=== PATIENT | male | born 1935 | race Caucasian/White ===

== ENCOUNTER → 2017-04-10 | Outpatient (CLI) | payer MEDICARE, OTHER ==
--- NOTE | 2017-04-10 13:00 | WOMENS IMAGING REPORT ---
EXAM DESCRIPTION: BONE DENSITY HIP/SPINE COMPLETED DATE/TIME: 04/10/2017 12:52 pm REASON FOR STUDY: OSTEOPENIA M81.0 AGE-RELATED OSTEOPOROSIS W/O CURRENT PATHOLOGICAL FRAC COMPARISON: None. TECHNIQUE: Dual-Energy X-ray Absorptiometry (DEXA) of the AP Spine and Hip. LIMITATIONS: None. FINDINGS: LUMBAR SPINE: The bone mineral density (BMD) measured from L1-L4 in the AP projection correlates with a T-score of -1.4, which is osteopenia as defined by the World Health Organization. HIP: The bone mineral density (BMD) measured in the left hip correlates with a T-score of -1.8, which is o steopenia as defined by the World Health Organization. IMPRESSION: 1. LUMBAR SPINE: OSTEOPENIA. 2. HIP: OSTEOPENIA. COMMENT: The World Health Organization defines low BMD as follows: T-score: Normal: Greater than -1.0 Osteopenia: Between -1.0 and -2.5 Osteoporosis: Less than -2.5 without fractures Established osteoporosis: Less than -2.5 with fractures In general, you may wish to consider: Diagnosis Treatment Follow-up DEXA Normal BMD Prevention 2-3 years Osteopenia Prevention/Therapy 1-2 years Osteoporosis Therapy Yearly TECHNICAL DOCUMENTATION: JOB ID: [id number] [employer]- All Rights Reserved
== END ==
LOC: WI 12:29
PROVIDERS: ATTEND Physician Assistant
DX: M81.0 Age-related osteoporosis without current pathological fracture (principal)
CPT/HCPCS: 77080

== ENCOUNTER 2019-08-07 10:06 | Emergency (ER) | payer MEDICARE, OTHER ==
--- NOTE | 2019-08-07 10:23 | ER Document Report ---
ED Medical Screen (RME) - General Chief Complaint: Dizziness Stated Complaint: DIZZINESS Time Seen by Provider: 08/07/19 10:17 Primary Care Provider: MARIAM LOZA PA [Primary Care Provider] - Follow up as needed Mode of Arrival: Wheelchair Information source: Patient Notes: 84-year-old male presented to ED for complaint of dizziness starting on Sunday. He states he forgot his meds this morning but dizziness started on Sunday. He states his eye doctor also told him that his glaucoma was narrowing and that he really needed to get that checked out. He states his primary care doctor told him please to have that checked out also while he was in the ER. Patient is alert and oriented respirations regular nonlabored speaking in full sentences. I have greeted and performed a rapid initial assessment of this patient. A comprehensive ED assessment and evaluation of the patient, analysis of test results and completion of medical decision making process will be conducted by an additional ED providers. TRAVEL OUTSIDE OF THE [place] 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 Neurological Medical History: Reports: Hx Cerebrovascular Accident - 2017 Endocrine Medical History: Reports: None Renal/ Medical History: Reports: None Malignancy Medical History: Reports Other - throat GI Medical History: Reports: Hx Colonoscopy Musculoskeltal Medical History: Reports Hx Arthritis, Reports Hx Musculoskeletal Deformity, Reports Hx Musculoskeletal Trauma Skin Medical History: Reports None Psychiatric Medical History: Reports: None Traumatic Medical History: Reports: Hx Fractures - hip Infectious Medical History: Reports: None Past Surgical History: Reports: Hx Bowel Surgery, Hx Inguinal Hernia - bilateral, Hx Orthopedic Surgery - femur, Other - throat cancer Doctor's Discharge - Discharge Referrals: MARIAM LOZA PA [Primary Care Provider] - Follow up as needed
[2019-08-07 11:05] LABS: ABSOLUTE EOSINOPHILS # (AUTO) 0.3 10^3/uL (0.0-0.6); ABSOLUTE LYMPHOCYTES (AUTO) 0.9 10^3/uL (0.5-4.7); ABSOLUTE MONOCYTES (AUTO) 0.5 10^3/uL (0.1-1.4); ABSOLUTE NEUT (AUTO) 2.3 10^3/uL (1.7-8.2); BASOPHILS % (AUTO) 1.2 % (0-2); EOSINOPHILS % (AUTO) 7.4 % (0-6); HEMATOCRIT 39.5 % (37.9-51.0); HEMOGLOBIN 13.4 g/dL (13.5-17.0); LYMPHOCYTES % (AUTO) 21.6 % (13-45); MEAN CORPUSCULAR HEMOGLOBIN 31.2 pg (27.0-33.4); MEAN CORPUSCULAR HGB CONC 33.9 g/dL (32.0-36.0); MEAN CORPUSCULAR VOLUME 92 fl (80-97); MONOCYTES % (AUTO) 12.8 % (3-13); PLATELET COUNT 128 10^3/uL (150-450); RED BLOOD COUNT 4.29 10^6/uL (4.35-5.55); TOTAL CELLS COUNTED % (AUTO) 100 %
--- NOTE | 2019-08-07 11:13 | ER Document Report ---
ED General - General Chief Complaint: Dizziness Stated Complaint: DIZZINESS Time Seen by Provider: 08/07/19 10:17 Primary Care Provider: MARIAM LOZA PA [NO LOCAL MD] - Follow up in 3-5 days Mode of Arrival: Wheelchair Notes: 84-year-old male with a history of speechrelated stroke fully recovered and other risk factors presents with this. Vague but more likely vertigo than lightheadedness when inquiring. Non-positional. Worse in the morning better throughout the day. Is going on for several days. Also has some pressure in his nose and sinuses but no green nasal discharge fever cough or shortness of breath. Denies focal numbness tingling or weakness, denies incoordination or he adache. Sent from primary care where he did not receive a work-up. TRAVEL OUTSIDE OF THE [place] 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 Neurological Medical History: Reports: Hx Cerebrovascular Accident - 2017 Endocrine Medical History: Reports: None Renal/ Medical History: Reports: None Malignancy Medical History: Reports Other - throat GI Medical History: Reports: Hx Colonoscopy Musculoskeletal Medical History: Reports Hx Arthritis, Reports Hx Musculoskeletal Deformity, Reports Hx Musculoskeletal Trauma Skin Medical History: Reports None Psychiatric Medical History: Reports: None Traumatic Medical History: Reports: Hx Fractures - hip Infectious Medical History: Reports: None Past Surgical History: Reports: Hx Bowel Surgery, Hx Inguinal Hernia - bilateral, Hx Orthopedic Surgery - femur, Other - throat cancer Review of Systems - Review of Systems Notes: REVIEW OF SYSTEMS GEN: Denies fever, chills, weight loss ENT: Facial pressure no ear pain or nasal drainage EYES: Denies blurry vision, eye pain, discharge CV: Denies chest pain, palpitations, edema RESP: Denies cough, shortness of breath, wheezing GI: Denies abdominal pain, nausea, vomiting, diarrhea MSK: Denies joint pain/swelling, edema, SKIN: Denies rash, skin lesions LYMPH: Denies swollen glands/lymph nodes NEURO: Dizzy. Denies headache, focal weakness or numbness, PSYCH: Denies depression, suicidal or homicidal ideation PHYSICAL EXAMINATION General: No acute distress, well-nourished Head: Atraumatic, normocephalic ENT: Mouth normal, oropharynx moist, no exudates or tonsillar enlargement. Partial cerumen obstruction but visualized portions of tympanic membranes bilaterally appear normal.. Eyes: Conjunctiva normal, pupils equal, lids normal Neck: No JVD, supple, no guarding CVS: Normal rate, regular rhythm, no murmurs Resp: No resp distress, equal and normal breath sounds bilaterally GI: Nondistended, soft, no tenderness to palpation, no rebound or guarding Ext: No deformities, no edema, normal range of motion in upper and lower ext Back: No CVA or midline TTP Skin: No rash, warm Lymphatic: No lymphadeopathy noted Neuro: Awake, alert. Face symmetric. GCS 15. Cranial nerves II through X are normal including fluent speech.Normal gait negative Romberg. Normal [id number]-[id number] and mvnz-eq-mduh. Normal strength and sensation in all 4 extremities. Physical Exam - Vital signs Vitals: Pulse Resp BP Pulse Ox 55 L 18 155/79 H 100 08/07/19 10:06 08/07/19 10:06 08/07/19 10:06 08/07/19 10:06 - HEENT Visual acuity- Right eye: 20/20 Visual acuity- Left eye: 20/25 Visual acuity- Both eyes: 20/20 Corrective lenses worn: Yes Course - Re-evaluation Re-evalutation: 08/07/19 11:12 Vague dizziness and vertigo in an elderly male. Neurologic exam normal despite history of stroke. Does not seem like peripheral or central vertigo based on exam and is not reproducible in the ED. Noncon head CT negative labs are unrevealing. Given the clinical exam despite the symptoms I do not think this patient is suffering an occult or posterior circulation stroke nor does he need urgent CTA or MRI. He is stable for outpatient work-up and discharge. I have discussed w ith the patient there likely diagnosis, aftercare plan, follow-up plans and my usual and customary return precautions. They verbalized understanding of this. 08/07/19 11:[address] negative acute labs normal Stable for discharge home - Vital Signs Vital signs: Temp Pulse Resp BP Pulse Ox 97.8 F 54 L 16 147/61 H 100 08/07/19 10:16 08/07/19 10:16 08/07/19 10:16 08/07/19 10:16 08/07/19 10:16 - Laboratory Result Diagrams: 08/07/19 10:45 08/07/19 10:45 Laboratory results interpreted by me: 08/07/19 08/07/19 10:45 10:45 RBC 4.29 L Hgb 13.4 L Plt Count 128 L Eos % (Auto) 7.4 H Carbon Dioxide 35 H Anion Gap 2 L - Diagnostic Test Radiology reviewed: Image reviewed, Reports reviewed - EKG Interpretation by Me EKG shows normal: Sinus rhythm Rate: Normal Rhythm: NSR [place]/QRS: RBBB When compared to previous EKG there are: Previous EKG unavailable Discharge - Discharge Clinical Impression: Dizziness Condition: Good Disposition: HOME, SELF-CARE Instructions: Vertigo (OM) Referrals: MARIAM LOZA PA [NO LOCAL MD] - Follow up in 3-5 days
[2019-08-07 11:18] LABS: ALBUMIN 3.7 g/dL (3.5-5.0); ALKALINE PHOSPHATASE 52 U/L (38-126); ASPARTATE AMINO TRANSFERASE 40 U/L (17-59); BILIRUBIN,DIRECT 0.1 mg/dL (0.0-0.4); BILIRUBIN,TOTAL 0.4 mg/dL (0.2-1.3); BLOOD UREA NITROGEN 19 mg/dL (7-20); CALCIUM 9.1 mg/dL (8.4-10.2); GLUCOSE 94 mg/dL (75-110); POTASSIUM 4.1 mmol/L (3.6-5.0); TOTAL PROTEIN 6.3 g/dL (6.3-8.2)
[2019-08-07 11:23] LABS: CARBON DIOXIDE 35 mmol/L (22-30); CHLORIDE 104 mmol/L (98-107)
[2019-08-07 11:24] LABS: ANION GAP 2 (5-19)
--- NOTE | 2019-08-07 11:27 | RADIOLOGY REPORT (SQ) ---
EXAM DESCRIPTION: CT HEAD WITHOUT IMAGES COMPLETED DATE/TIME: 08/07/2019 11:03 am REASON FOR STUDY: dizziness sinusitis COMPARISON: None. TECHNIQUE: Axial images acquired through the brain without intravenous contrast. Images reviewed wi th bone, brain and subdural windows. Additional sagittal and coronal reconstructions were generated. Images stored on PACS. All CT scanners at this facility use dose modulation, iterative reconstruction, and/or weight based d osing when appropriate to reduce radiation dose to as low as reasonably achievable (ALARA). [facility]: Dose Right [facility]: CareDose [facility]: Dose Right [facility]: Teradose 4D [facility]: Smart [employer] RADIATION DOSE: CT Rad equipment meets quality standard of care and radiation dose reduction techniq ues were employed. CTDIvol: 53.2 mGy. DLP: 1044 mGy-cm. mGy. LIMITATIONS: None. FINDINGS: VENTRICLES: Normal size and contour. CEREBRUM: No masses. No hemorrhage. No midline shift. No evidence for acute infarction. Spotty bif rontal and biparietal low attenuation in the hemispheric white matter from chronic small vessel ische marzena change CEREBELLUM: No masses. No hemorrhage. No alteration of density. No evidence for acute infarction. EXTRAAXIAL SPACES: No fluid collections. No masses. ORBITS AND GLOBE: No intra- or extraconal masses. Normal contour of globe without masses. Post bila teral cataract surgery CALVARIUM: No fracture. PARANASAL SINUSES: No fluid or mucosal thickening. SOFT TISSUES: No mass or hematoma. OTHER: No other significant finding. IMPRESSION: No acute intracranial changes. Age-appropriate spotty hemispheric white matter low attenuation from chronic small vessel disease. Paranasal sinuses are clear EVIDENCE OF ACUTE STROKE: NO. COMMENT: Quality ID # [id number]: Final reports with documentation of one or more dose reduction techniques (e.g., Automated exposure control, adjustment of the mA and/or kV according to patient size, use of iterative reconstruction technique) TECHNICAL DOCUMENTATION: JOB ID: [id number] 2010 [employer]- All Rights Reserved Reading location - IP/workstation name: [id number]
[2019-08-07 11:39] VITALS: BP 156/72
--- NOTE | 2019-08-08 16:10 | EKG REPORT ---
SEVERITY:- ABNORMAL ECG - SINUS BRADYCARDIA FIRST DEGREE AV BLOCK RIGHT BUNDLE BRANCH BLOCK CONSIDER INFERIOR INFARCT : Confirmed by: Linda Aviles 08-Aug-2019 16:09:46
== END 2019-08-07 11:40 | disposition home or self-care (01) ==
LOC: ER 10:06
DX: R42 Dizziness and giddiness (principal); R09.89 Other specified symptoms and signs involving the circulatory and respiratory systems; H61.20 Impacted cerumen, unspecified ear; I45.10 Unspecified right bundle-branch block; Z88.1 Allergy status to other antibiotic agents; Z86.73 Personal history of transient ischemic attack (TIA), and cerebral infarction without residual deficits; Z85.819 Personal history of malignant neoplasm of unspecified site of lip, oral cavity, and pharynx
CPT/HCPCS: 36415; 70450; 80053; 82962; 85025; 93005; 93010; 99284

== ENCOUNTER 2020-03-21 12:18 | Observation (INO) | payer MEDICARE, OTHER ==
--- NOTE | 2020-03-21 12:54 | RADIOLOGY REPORT (SQ) ---
EXAM DESCRIPTION: CT HEAD WITHOUT IMAGES COMPLETED DATE/TIME: 03/21/2020 12:31 pm REASON FOR STUDY: bed 20 ams stroke protocol left-sided headache, word finding difficulty COMPARISON: CT brain 08/07/2019 TECHNIQUE: Axial images acquired through the brain without intravenous contrast. Images reviewed wi th bone, brain and subdural windows. Additional sagittal and coronal reconstructions were generated. Images stored on PACS. All CT scanners at this facility use dose modulation, iterative reconstruction, and/or weight based d osing when appropriate to reduce radiation dose to as low as reasonably achievable (ALARA). [facility]: Dose Right [facility]: CareDose [facility]: Dose Right [facility]: Teradose 4D [facility]: Smart [employer] RADIATION DOSE: CT Rad equipment meets quality standard of care and radiation dose reduction techniq ues were employed. CTDIvol: 53.2 mGy. DLP: 937 mGy-cm. mGy. LIMITATIONS: None. FINDINGS: VENTRICLES: Normal size and contour. CEREBRUM: No masses. No hemorrhage. No midline shift. No evidence for acute infarction. Normal gra y/white matter differentiation. No areas of low density in the white matter. CEREBELLUM: No masses. No hemorrhage. No alteration of density. No evidence for acute infarction. EXTRAAXIAL SPACES: No fluid collections. No masses. ORBITS AND GLOBE: No intra- or extraconal masses. Post bilateral cataract surgery. CALVARIUM: No fracture. PARANASAL SINUSES: No fluid or mucosal thickening. SOFT TISSUES: No mass or hematoma. OTHER: Report called to Dr. Almanzar in the emergency room 1245 hours 03/21/2020, CT stroke alert IMPRESSION: NORMAL BRAIN CT WITHOUT CONTRAST. EVIDENCE OF ACUTE STROKE: NO. COMMENT: Pertinent findings on the imaging study reported as a CRITICAL RESULT to JORGE ALMANZAR MD at12:45 on 03/21/2020. Category of Critical Result: CT code stroke Quality ID # [id number]: Final reports with documentation of one or more dose reduction techniques (e.g., Au tomated exposure control, adjustment of the mA and/or kV according to patient size, use of iterative reconstruction technique) TECHNICAL DOCUMENTATION: JOB ID: [id number] 2010 [employer]- All Rights Reserved Reading location - IP/workstation name: [id number]
--- NOTE | 2020-03-21 12:55 | RADIOLOGY REPORT (SQ) ---
EXAM DESCRIPTION: CHEST SINGLE VIEW IMAGES COMPLETED DATE/TIME: 03/21/2020 12:33 pm REASON FOR STUDY: bed 20 ams stroke protocol COMPARISON: None. EXAM PARAMETERS: NUMBER OF VIEWS: One view. TECHNIQUE: Single frontal radiographic view of the chest acquired. RADIATION DOSE: NA LIMITATIONS: None. FINDINGS: LUNGS AND PLEURA: No opacities, masses or pneumothorax. No pleural effusion. MEDIASTINUM AND HILAR STRUCTURES: No masses. Contour normal. HEART AND VASCULAR STRUCTURES: Heart normal in size. Normal vasculature. BONES: No acute findings. HARDWARE: None in the chest. OTHER: No other significant finding. IMPRESSION: NO ACUTE RADIOGRAPHIC FINDING IN THE CHEST. TECHNICAL DOCUMENTATION: JOB ID: [id number] 2010 [employer]- All Rights Reserved Reading location - IP/workstation name: [id number]
[2020-03-21 13:03] LABS: ABSOLUTE EOSINOPHILS # (AUTO) 0.2 10^3/uL (0.0-0.6); ABSOLUTE MONOCYTES (AUTO) 0.6 10^3/uL (0.1-1.4); ABSOLUTE NEUT (AUTO) 2.7 10^3/uL (1.7-8.2); BASOPHILS % (AUTO) 0.8 % (0-2); EOSINOPHILS % (AUTO) 4.6 % (0-6); HEMATOCRIT 37.3 % (37.9-51.0); HEMOGLOBIN 12.6 g/dL (13.5-17.0); INTERNATIONAL RATION (INR) 0.99; LYMPHOCYTES % (AUTO) 21.7 % (13-45); MEAN CORPUSCULAR HEMOGLOBIN 31.4 pg (27.0-33.4); MEAN CORPUSCULAR HGB CONC 33.8 g/dL (32.0-36.0); MEAN CORPUSCULAR VOLUME 93 fl (80-97); PLATELET COUNT 132 10^3/uL (150-450); PROTHROMBIN TIME 13.3 SEC (11.4-15.4); RED BLOOD COUNT 4.01 10^6/uL (4.35-5.55); RED CELL DISTRIBUTION WIDTH 13.6 % (11.5-14.0); SEGMENTED NEUTROPHILS % (AUTO) 59.9 % (42-78); TOTAL CELLS COUNTED % (AUTO) 100 %; WHITE BLOOD COUNT 4.6 10^3/uL (4.0-10.5)
[2020-03-21 13:04] LABS: PARTIAL THROMBOPLASTIN TIME 25.9 SEC (23.5-35.8)
[2020-03-21 13:21] LABS: ALKALINE PHOSPHATASE 50 U/L (38-126); ANION GAP 5 (5-19); ASPARTATE AMINO TRANSFERASE 35 U/L (17-59); BILIRUBIN,TOTAL 0.5 mg/dL (0.2-1.3); BLOOD UREA NITROGEN 22 mg/dL (7-20); CALCIUM 9.4 mg/dL (8.4-10.2); CARBON DIOXIDE 32 mmol/L (22-30); CHLORIDE 102 mmol/L (98-107); CREATINE KINASE 99 U/L (55-170); GLUCOSE 93 mg/dL (75-110); POTASSIUM 4.7 mmol/L (3.6-5.0); TOTAL PROTEIN 6.2 g/dL (6.3-8.2)
[2020-03-21 13:33] LABS: CREATINE KINASE MB 1.83 ng/mL (<4.55)
[2020-03-21 13:35] LABS: TROPONIN I < 0.012 ng/mL
[2020-03-21] MEDS ORDERED: ASPIRIN 325 MG TABLET PO ONE (14:30)
--- NOTE | 2020-03-21 14:30 | ER Document Report ---
ED General - General Chief Complaint: Altered Mental Status Stated Complaint: AMS Primary Care Provider: DREW PEREZ PA [Primary Care Provider] - Follow up as needed Mode of Arrival: Medic Notes: This 84-year-old man presents to the emergency department with a history of altered mental status. Patient notes that he is having a difficult time with word finding and getting the correct word. He denies weakness in the upper extremities or lower extremities there is no facial droop. His daughter in law who present in the emergency department notes that he just seemed to be rambling and unable to get his thoughts out. Episode began suddenly at about 9 AM this morning. Patient was brought into the emergency department as a possible stroke alert. He went to CT was noted to be negative and upon arrival back to the room, his speech had improved. Complains of a left-sided headache, denies neck pain or chest pain. He has had a history of throat cancer which is being monitored by his doctors in [place]. He has a history of a speech related stroke in the remote past which apparently resolved completely. TRAVEL OUTSIDE OF THE [place] IN LAST 30 DAYS: No - Related Data Allergies/Adverse Reactions: tetracycline Allergy (Verified 08/07/19 11:15) Past Medical History - Social History Smoking Status: Unknown if Ever Smoked Chew tobacco use (# tins/day): No Drug Abuse: None Family History: None Pulmonary Medical History: Reports: Hx Sleep Apnea Neurological Medical History: Reports: Hx Cerebrovascular Accident - 2017 GI Medical History: Reports: Hx Colonoscopy Musculoskeletal Medical History: Reports Hx Arthritis, Reports Hx Musculoskeletal Deformity, Reports Hx Musculoskeletal Trauma Traumatic Medical History: Reports: Hx Fractures - hip Past Surgical History: Reports: Hx Bowel Surgery, Hx Inguinal Hernia - bilateral, Hx Orthopedic Surgery - femur, Other - throat cancer Review of Systems - Review of Systems Notes: Constitutional: Negative for fever. HENT: Negative for sore throat. Eyes: Negative for visual changes. Cardiovascular: Negative for chest pain. Respiratory: Negative for shortness of breath. Gastrointestinal: Negative for abdominal pain, vomiting or diarrhea. Genitourinary: Negative for dysuria. Musculoskeletal: Negative for back pain. Skin: Negative for rash. Neurological: See HPI 10 point ROS negative except as marked above and in HPI. Physical Exam - Vital signs Vitals: Pulse Ox 99 03/21/20 12:20 - Notes Notes: PHYSICAL EXAMINATION: Physical Exam: General: Pleasant 84-year-old man in no acute distress HEENT: NC/AT, pupils equal round and reactive to light, MM moist,nares clear, oropharynx clear, airway patent Neck: supple, no adenopathy, no masses. Good range of motion Lungs: clear, no wheezing, no rales no rhonchi CVS: Regular rate and rhythm no murmur gallop or rub Abdomen: Soft, active, nontender, no masses, no hepatosplenomegaly Ext: No edema, clubbing or cyanosis. Neuro: Alert and responsive, moving all 4 extremities on command, cranial nerves intact, no focal findings Skin: Intact no open lesions, no rash Course - Re-evaluation Re-evalutation: 03/21/20 14:39 Patient with a onset of speech difficulty this morning was as improved after the CT scan was performed. Transit ischemic attack. Patient is not a candidate for TPA, minimal symptoms and resolution of symptoms. Patient may need to be brought into the hospital for further evaluation and closer monitoring. 03/21/20 15:27 I have discussed the patient with the hospitalist, the patient will be admitted to the hospital for further evaluation and treatment, a MRI was requested prior to admission. - Vital Signs Vital signs: Temp Pulse Resp BP Pulse Ox 98.7 F 50 L 14 158/77 H 97 03/21/20 12:38 03/21/20 13:02 03/21/20 14:41 03/21/20 14:41 03/21/20 14:41 - Laboratory Result Diagrams: 03/21/20 12:45 03/21/20 12:45 Laboratory results interpreted by me: 03/21/20 03/21/20 12:45 12:45 RBC 4.01 L Hgb 12.6 L Hct 37.3 L Plt Count 132 L Carbon Dioxide 32 H BUN 22 H Total Protein 6.2 L - Diagnostic Test Radiology reviewed: Image reviewed, Reports reviewed Radiology results interpreted by me: 03/21/20 14:40 Chest X-Ray 03/21/20 12:20 IMPRESSION: NO ACUTE RADIOGRAPHIC FINDING IN THE CHEST. Head CT 03/21/20 12:20 IMPRESSION: NORMAL BRAIN CT WITHOUT CONTRAST. EVIDENCE OF ACUTE STROKE: NO. - EKG Interpretation by Me Rate: Bradycardia - EKG interpreted by Dr. Almanzar: Bradycardia, rate 50, W[place] interval 288 ms QT interval 464 ms, abnormal axis, RBBB, no ischemic findings, compared to EKG dated 08/07/2019, no significant interval changes. Interpretation abnormal EKG Discharge - Discharge Clinical Impression: TIA (transient ischemic attack), Word finding difficulty Condition: Good Disposition: ADMITTED INPATIENT Admitting Provider: Len (Hospitalist) Unit Admitted: IMCU Referrals: DREW PEREZ PA [Primary Care Provider] - Follow up as needed
[2020-03-21] MEDS ORDERED: ACETAMINOPHEN 325 MG TABLET PO ONE (14:31)
[2020-03-21] MEDS ORDERED: ACETAMINOPHEN 325 MG TABLET PO PRN (15:46)
--- NOTE | 2020-03-21 16:25 | PDOC H&P ---
History of Present Illness Admission Date/PCP: KOURTNEY BEJARANO History of Present Illness: GRAHAM TIRADO is a 84 year old male with a history of coronary artery disease and a stroke in 2017 related to post cardiac catheterization complications with no residual deficits who presents this morning after an episode at home. He said he was in the kitchen making himself something to eat and when he turned around to say something to his and even though he knew what he wanted to say, he could not get the words out. His was on the phone with his daughter and his daughter advised his to call EMS. He had already taken a baby aspirin that morning and his brought him another 1. He said he was having a headache as well. He said he could walk fine and did not feel he had any trouble with his balance. He had no extremity weakness. He experienced no numbness. No tingling. He did not have any facial asymmetry. He did not have any visual disturbances. He was still having a little trouble with word finding when EMS arrived but his symptoms resolved by the time he got to the hospital. Vital signs and head CT were negative. Labs are unremarkable. He was ambu lating independently. He passed a swallow eval. His NIH stroke score is 0. Past Medical History Cardiac Medical History: Reports: Coronary Artery Disease Pulmonary Medical History: Reports: Sleep Apnea Neurological Medical History: Reports: Ischemic CVA, Other - Stroke was secondary to complication from cardiac catheterization that day GI Medical History: Reports: Gastroesophageal Reflux Disease Musculoskeltal Medical History: Reports: Arthritis Past Surgical History Past Surgical History: Reports: Orthopedic Surgery - femur, Other - throat cancer Social History Smoking Status: Unknown if Ever Smoked Electronic Cigarette use?: No Family History Family History: None, Arthritis, CAD, Hyperlipidemia, Hypertension Parental Family History Reviewed: Yes Children Family History Reviewed: Yes Sibling(s) Family History Reviewed.: Yes Medication/Allergy Allergies/Adverse Reactions: tetracycline Allergy (Verified 08/07/19 11:15) Review of Systems All systems: reviewed and no additional remarkable complaints except as stated - All systems were reviewed were negative except as noted in the HPI Physical Exam Vital Signs: Temp Pulse Resp BP Pulse Ox 98.7 F 50 L 14 158/77 H 97 03/21/20 12:38 03/21/20 13:02 03/21/20 14:41 03/21/20 14:41 03/21/20 14:41 Intake & Output 03/20/20 03/21/20 03/22/20 06:59 06:59 06:59 Weight 63.4 kg General appearance: PRESENT: no acute distress, cooperative, disheveled Head exam: PRESENT: atraumatic, normocephalic Eye exam: PRESENT: EOMI, PERRLA. ABSENT: conjunctival injection, nystagmus, scleral icterus Ear exam: PRESENT: normal external ear exam Mouth exam: PRESENT: moist, neck supple Throat exam: ABSENT: post pharyngeal erythema Neck exam: PRESENT: full ROM. ABSENT: carotid bruit, JVD, lymphadenopathy, meningismus, tenderness, thyromegaly Respiratory exam: PRESENT: clear to auscultation bela, symmetrical, unlabored. ABSENT: accessory muscle use, chest wall tenderness, crackles, prolonged expiratory phas, rhonchi, tachypnea, wheezes Cardiovascular exam: PRESENT: RRR, +S1, +S2 Pulses: PRESENT: normal carotid pulses Vascular exam: PRESENT: normal capillary refill GI/Abdominal exam: PRESENT: normal bowel sounds, soft. ABSENT: distended, guarding, rebound, tenderness Extremities exam: ABSENT: clubbing, pedal edema Musculoskeletal exam: PRESENT: ambulatory, normal inspection. ABSENT: deformity Neurological exam: PRESENT: alert, awake, oriented to person, oriented to place, oriented to situation, CN II-XII grossly intact. ABSENT: motor sensory deficit Psychiatric exam: PRESENT: appropriate affect, normal mood Skin exam: PRESENT: dry, warm Results Laboratory Results: 03/21/20 12:45 03/21/20 12:45 03/21/20 03/21/20 12:45 12:45 WBC 4.6 RBC 4.01 L Hgb 12.6 L Hct 37.3 L MCV 93 MCH 31.4 MCHC 33.8 RDW 13.6 Plt Count 132 L Seg Neutrophils % 59.9 Sodium 138.8 Potassium 4.7 Chloride 102 Carbon Dioxide 32 H Anion Gap 5 BUN 22 H Creatinine 0.98 Est GFR ( Amer) > 60 Glucose 93 Calcium 9.4 Total Bilirubin 0.5 AST 35 Alkaline Phosphatase 50 Total Protein 6.2 L Albumin 4.0 03/21/20 03/21/20 12:45 12:45 Creatine Kinase 99 CK-MB (CK-2) 1.83 Troponin I < 0.012 Impressions: Chest X-Ray 03/21/20 12:20 IMPRESSION: NO ACUTE RADIOGRAPHIC FINDING IN THE CHEST. Head CT 03/21/20 12:20 IMPRESSION: NORMAL BRAIN CT WITHOUT CONTRAST. EVIDENCE OF ACUTE STROKE: NO. Assessment and Plan - Diagnosis (1) TIA (transient ischemic attack) Is this a current diagnosis for this admission?: Yes (2) History of coronary artery disease Is this a current diagnosis for this admission?: Yes (3) GERD (gastroesophageal reflux disease) Qualifiers: Esophagitis presence: without esophagitis Qualified Code(s): K21.9 - Gastro-esophageal reflux disease without esophagitis Is this a current diagnosis for this admission?: Yes - Plan Summary Summary: He already takes aspirin, Plavix, and atorvastatin at home. We will continue these. MRI of the brain without contrast has been ordered. He had carotid Doppler ultrasound done 1 month ago in [place] and his [id number] reported that there was no significant stenosis. His symptoms resolved after approximately 1 hour. He displays no residual deficits now. He passed his swallow screen in the ER and was able to drink water and swallow pills. He was able to ambulate independently to the bathroom. For these reasons I do not think he needs to be evaluated by physical therapy or speech therapy. If his MRI is negative and he remains asymptomatic he can be discharged home. - Time Time Spent with patient: 35 or more minutes Anticipated Discharge Disposition: Home, Self Care Anticipated Discharge Timeframe: within 24 hours
--- NOTE | 2020-03-21 18:44 | RADIOLOGY REPORT (SQ) ---
EXAM DESCRIPTION: MRI HEAD WITHOUT IMAGES COMPLETED DATE/TIME: 03/21/2020 5:55 pm REASON FOR STUDY: Stroke-like symptoms COMPARISON: Noncontrast head CT 03/21/2020 TECHNIQUE: Multiplanar imaging includes non-contrasted T1, T2, FLAIR, and Diffusion with ADC map seq uences. Images stored on PACS. LIMITATIONS: None. FINDINGS: ANATOMY: No anomalies. Normal vascular flow voids. Pituitary fossa normal. CSF SPACES: Normal in size and contour. No hemorrhage. Incidental note is made of a tiny arachnoid g ranulation to the left of the superior sagittal sinus in the region of the frontal lobe (coronal T2 i mage 19). CEREBRUM: Scattered foci of T2 prolongation are seen throughout the white matter on FLAIR imaging wit h distribution suggesting chronic micro-vascular ischemic change. Sulci and gyri normal in size and contour. No evidence of hemorrhage, mass or extraaxial fluid collection. POSTERIOR FOSSA: No signal alteration. No hemorrhage. No edema, masses or mass effect. Internal mary ann tory canals, cerebello-pontine angles, mastoids normal. DIFFUSION: Negative for acute or sub-acute infarction. ORBITS: No masses. Globes normal. PARANASAL SINUSES: No fluid levels. Mucosa normal. OTHER: No other significant finding. IMPRESSION: No evidence of acute or subacute ischemic injury. Background of chronic microvascular i schemic change. EVIDENCE OF ACUTE STROKE: NO. TECHNICAL DOCUMENTATION: JOB ID: [id number] 2010 [employer]- All Rights Reserved Reading location - IP/workstation name: [email or web address]
[2020-03-21] MEDS: FAMOTIDINE 20 MG TABLET PO SCH (21:59)
[2020-03-21] MEDS ORDERED: ATORVASTATIN CALCIUM 40 MG TABLET PO SCH (22:00)
--- NOTE | 2020-03-21 23:56 | EKG REPORT ---
SEVERITY:- ABNORMAL ECG - SINUS RHYTHM FIRST DEGREE AV BLOCK RIGHT BUNDLE BRANCH BLOCK : Confirmed by: Linda Aviles 21-Mar-2020 23:55:54
[2020-03-22 06:45] LABS: CHOLESTEROL 100.23 mg/dL (0-200); TRIGLYCERIDES 72 mg/dL (<150)
[2020-03-22 06:56] LABS: DIRECT LDL 32 mg/dL (<100)
[2020-03-22] MEDS ORDERED: INFLUENZA QUAD (6MOS+) 2020-21 VAC 0.5 ML SYR IM ONE (08:00)
[2020-03-22] MEDS: FAMOTIDINE 20 MG TABLET PO SCH (09:08)
[2020-03-22] MEDS ORDERED: ASPIRIN 81 MG TABLET, CHEWABLE PO SCH (10:00)
[2020-03-22] MEDS ORDERED: CLOPIDOGREL BISULFATE 75 MG TABLET PO SCH (10:00)
[2020-03-22 11:02] VITALS: BP 117/57
--- NOTE | 2020-03-22 19:01 | PDOC DISCHARGE SUMMARY ---
Impression - Admit/DC Date/PCP Admission Date/Primary Care Provider: 03/21/20 15:52 KOURTNEY BEJARANO Discharge Date: 03/22/20 - Discharge Diagnosis (1) TIA (transient ischemic attack) Is this a current diagnosis for this admission?: Yes (2) History of coronary artery disease Is this a current diagnosis for this admission?: Yes (3) GERD (gastroesophageal reflux disease) Is this a current diagnosis for this admission?: Yes - Assessment Summary: He already takes aspirin, Plavix, and atorvastatin at home. We will continue these. MRI of the brain without contrast has been ordered. He had carotid Doppler ultrasound done 1 month ago in [place] and his [id number] reported that there was no significant stenosis. His symptoms resolved after approximately 1 hour. He displays no residual deficits now. He passed his swallow screen in the ER and was able to drink water and swallow pills. He was able to ambulate independently to the bathroom. For these reasons I do not think he needs to be evaluated by physical therapy or speech therapy. If his MRI is negative and he remains asymptomatic he can be discharged home. - Additional Information Resuscitation Status: Full Code Discharge Diet: Cardiac Discharge Activity: Activity As Tolerated Referrals: DREW PEREZ PA [Primary Care Provider] - 03/30/20 1:00 pm () Home Medications: Aspirin [Adult Low Dose Aspirin EC] 81 mg PO DAILY 03/22/20 Atorvastatin Calcium [Lipitor 40 mg Tablet] 40 mg PO QPM 03/22/20 Cholecalciferol (Vitamin D3) [Vitamin D3 1000 Unit Tablet] 1,000 unit PO DAILY 03/22/20 Clopidogrel Bisulfate [Plavix 75 mg Tablet] 75 mg PO DAILY 03/22/20 Famotidine [Pepcid 20 mg Tablet] 40 mg PO QPM 03/22/20 Isosorbide Mononitrate [Imdur 30 mg Tablet.er] 30 mg PO DAILY 03/22/20 History of Present Illiness History of Present Illness: GRAHAM TIRADO is a 84 year old male with a history of coronary artery disease and a stroke in 2017 related to post cardiac catheterization complications with no residual deficits who presents this morning after an episode at home. He said he was in the kitchen making himself something to eat and when he turned around to say something to his and even though he knew what he wanted to say, he could not get the words out. His was on the phone with his daughter and his daughter advised his to call EMS. He had already taken a baby aspirin that morning and his brought him another 1. He said he was having a headache as well. He said he could walk fine and did not feel he had any trouble with his balance. He had no extremity weakness. He experienced no numbness. No tingling. He did not have any facial asymmetry. He did not have any visual disturbances. He was still having a little trouble with word finding when EMS arrived but his symptoms resolved by the time he got to the hospital. Vital signs and head CT were negative. Labs are unremarkable. He was ambulating independently. He passed a swallow eval. His NIH stroke score is 0. Hospital Course Hospital Course: He remained symptom-free. His MRI was negative. He was already on aspirin, Plavix, and a statin at home. He was also on Imdur daily and on that his blood pressure is well controlled. He had no functional deficits whatsoever. He will return home and follow-up with his primary care provider in 7 to 10 days. His labs and examination were reassuring and he was discharged in stable condition. Physical Exam Vital Signs: Temp Pulse Resp BP Pulse Ox 97.8 F 48 L 14 117/57 L 100 03/22/20 11:01 03/22/20 11:01 03/22/20 11:01 03/22/20 11:01 03/22/20 11:01 Intake & Output 03/21/20 03/22/20 03/23/20 06:59 06:59 06:59 Intake Total 990 Balance 990 Weight 62.2 kg General appearance: PRESENT: no acute distress, cooperative, disheveled Respiratory exam: PRESENT: clear to auscultation bela, symmetrical, unlabored. ABSENT: accessory muscle use, chest wall tenderness, crackles, prolonged expiratory phase, rhonchi, tachypnea, wheezes Cardiovascular exam: PRESENT: RRR, +S1, +S2 Pulses: PRESENT: normal carotid pulses Vascular exam: PRESENT: normal capillary refill GI/Abdominal exam: PRESENT: normal bowel sounds, soft. ABSENT: distended, guarding, rebound, tenderness Extremities exam: ABSENT: clubbing, pedal edema Musculoskeletal exam: PRESENT: ambulatory, normal inspection. ABSENT: deformity Neurological exam: PRESENT: alert, awake, oriented to person, oriented to place, oriented to situation, CN II-XII grossly intact. ABSENT: motor sensory deficit Psychiatric exam: PRESENT: appropriate affect, normal mood Skin exam: PRESENT: dry, warm Results Laboratory Results: WBC 4.6 10^3/uL (4.0-10.5) 03/21/20 12:45 RBC 4.01 10^6/uL (4.35-5.55) L 03/21/20 12:45 Hgb 12.6 g/dL (13.5-17.0) L 03/21/20 12:45 Hct 37.3 % (37.9-51.0) L 03/21/20 12:45 MCV 93 fl (80-97) 03/21/20 12:45 MCH 31.4 pg (27.0-33.4) 03/21/20 12:45 MCHC 33.8 g/dL (32.0-36.0) 03/21/20 12:45 RDW 13.6 % (11.5-14.0) 03/21/20 12:45 Plt Count 132 10^3/uL (150-450) L 03/21/20 12:45 Lymph % (Auto) 21.7 % (13-45) 03/21/20 12:45 Steele % (Auto) 13.0 % (3-13) 03/21/20 12:45 Eos % (Auto) 4.6 % (0-6) 03/21/20 12:45 Baso % (Auto) 0.8 % (0-2) 03/21/20 12:45 Absolute Neuts (auto) 2.7 10^3/uL (1.7-8.2) 03/21/20 12:45 Absolute Lymphs (auto) 1.0 10^3/uL (0.5-4.7) 03/21/20 12:45 Absolute Monos (auto) 0.6 10^3/uL (0.1-1.4) 03/21/20 12:45 Absolute Eos (auto) 0.2 10^3/uL (0.0-0.6) 03/21/20 12:45 Absolute Basos (auto) 0.0 10^3/uL (0.0-0.2) 03/21/20 12:45 Seg Neutrophils % 59.9 % (42-78) 03/21/20 12:45 PT 13.3 SEC (11.4-15.4) 03/21/20 12:45 INR 0.99 03/21/20 12:45 APTT 25.9 SEC (23.5-35.8) 03/21/20 12:45 Sodium 138.8 mmol/L (137-145) 03/21/20 12:45 Potassium 4.7 mmol/L (3.6-5.0) 03/21/20 12:45 Chloride 102 mmol/L (98-107) 03/21/20 12:45 Carbon Dioxide 32 mmol/L (22-30) H 03/21/20 12:45 Anion Gap 5 (5-19) 03/21/20 12:45 BUN 22 mg/dL (7-20) H 03/21/20 12:45 Creatinine 0.98 mg/dL (0.52-1.25) 03/21/20 12:45 Est GFR ( Amer) > 60 (>60) 03/21/20 12:45 Est GFR (MDRD) Non-Af > 60 (>60) 03/21/20 12:45 Glucose 93 mg/dL (75-110) 03/21/20 12:45 Calcium 9.4 mg/dL (8.4-10.2) 03/21/20 12:45 Total Bilirubin 0.5 mg/dL (0.2-1.3) 03/21/20 12:45 Direct Bilirubin 0.0 mg/dL (0.0-0.4) 03/21/20 12:45 Neonat Total Bilirubin Not Reportable 03/21/20 12:45 Neonat Direct Bilirubin Not Reportable 03/21/20 12:45 Neonat Indirect Bili Not Reportable 03/21/20 12:45 AST 35 U/L (17-59) 03/21/20 12:45 ALT 24 U/L (<50) 03/21/20 12:45 Alkaline Phosphatase 50 U/L (38-126) 03/21/20 12:45 Creatine Kinase 99 U/L (55-170) 03/21/20 12:45 CK-MB (CK-2) 1.83 ng/mL (<4.55) 03/21/20 12:45 Troponin I < 0.012 ng/mL 03/21/20 12:45 Total Protein 6.2 g/dL (6.3-8.2) L 03/21/20 12:45 Albumin 4.0 g/dL (3.5-5.0) 03/21/20 12:45 Triglycerides 72 mg/dL (<150) 03/22/20 05:39 Cholesterol 100.23 mg/dL (0-200) 03/22/20 05:39 LDL Cholesterol Direct 32 mg/dL (<100) 03/22/20 05:39 VLDL Cholesterol 14.0 mg/dL (10-31) 03/22/20 05:39 HDL Cholesterol 55 mg/dL (>40) 03/22/20 05:39 03/21/20 12:45 CK-MB (CK-2) 1.83 Troponin I < 0.012 Impressions: Chest X-Ray 03/21/20 12:20 IMPRESSION: NO ACUTE RADIOGRAPHIC FINDING IN THE CHEST. Head CT 03/21/20 12:20 IMPRESSION: NORMAL BRAIN CT WITHOUT CONTRAST. EVIDENCE OF ACUTE STROKE: NO. Head MRI 03/21/20 14:55 IMPRESSION: No evidence of acute or subacute ischemic injury. Background of chronic microvascular ischemic change. EVIDENCE OF ACUTE STROKE: NO. Plan Time Spent: Greater than 30 Minutes Stroke Is this a Stroke Patient?: No Acute Heart Failure Is this a Heart Failure Patient?: No
== END 2020-03-22 11:19 | disposition home or self-care (01) ==
LOC: ER 12:18 → EH 15:52 → 3W 16:30
PROVIDERS: ADMIT Family Medicine; ATTEND Family Medicine
DX: G45.9 Transient cerebral ischemic attack, unspecified (principal); I25.10 Atherosclerotic heart disease of native coronary artery without angina pectoris; K21.9 Gastro-esophageal reflux disease without esophagitis; I45.10 Unspecified right bundle-branch block; R00.1 Bradycardia, unspecified; R47.89 Other speech disturbances; Z79.82 Long term (current) use of aspirin; Z79.899 Other long term (current) drug therapy; Z79.02 Long term (current) use of antithrombotics/antiplatelets; Z86.73 Personal history of transient ischemic attack (TIA), and cerebral infarction without residual deficits; R29.700 NIHSS score 0; Z85.89 Personal history of malignant neoplasm of other organs and systems; Z82.49 Family history of ischemic heart disease and other diseases of the circulatory system; Z23 Encounter for immunization
CPT/HCPCS: 93005; 99285; 36415 ×2; 82553; 82550; 85025; 85610; 85730; 80053; 84484; 80061; 70551; 71045; 70450; 90686; 93010; 94660 ×2; G0378 ×3; G0008; A9270 ×7; J3490 ×2; 90471